=== PATIENT | female | born 1965 | race Two or more races ===

== ENCOUNTER 2017-09-19 10:25 | Day surgery (SDC) | payer BC, OTHER ==
[2017-09-19] MEDS ORDERED: PROPOFOL 200 MG/20 ML BOTTLE IV ONE ×2 (10:26)
[2017-09-19] MEDS ORDERED: LIDOCAINE HCL 2% 20 ML VIAL MC ONE ×2 (10:26)
[2017-09-19] MEDS ORDERED: IV LACTATED RINGERS SOLUTION 1,000 ML BAG IV ONE ×2 (10:26)
[2017-09-19 11:06] LABS: BASOPHILS % (AUTO) 0.8 % (0.0-2.0); EOSINOPHILS # (AUTO) 0.1 K/uL (0.0-0.7); EOSINOPHILS % (AUTO) 2.2 % (0.0-7.0); HEMATOCRIT 40.5 % (31.2-41.9); HEMOGLOBIN 13.6 g/dL (10.9-14.3); LYMPHOCYTES # (AUTO) 1.9 K/uL (20.0-40.0); LYMPHOCYTES % (AUTO) 34.1 % (20.5-51.5); MEAN CORPUSCULAR HEMOGLOBIN 29.7 uug (24.7-32.8); MEAN CORPUSCULAR HGB CONC 34 g/dL (32.3-35.6); MEAN CORPUSCULAR VOLUME 88.1 fL (75.5-95.3); MONOCYTES # (AUTO) 0.4 K/uL (2.0-10.0); MONOCYTES % (AUTO) 6.8 % (0.0-11.0); NEUTROPHILS # (AUTO) 3.2 K/uL (1.8-8.9); NEUTROPHILS % (AUTO) 56.1 % (38.5-71.5); PLATELET COUNT (AUTO) 232 K/uL (179-408); RED BLOOD CELL COUNT(AUTO) 4.59 MIL/uL (3.63-4.92); WHITE BLOOD COUNT (AUTO) 5.7 K/uL (3.8-11.8)
[2017-09-19 11:12] LABS: CREATININE 0.7 mg/dL (0.6-1.3)
[2017-09-19 11:18] LABS: *BILIRUBIN,URIN NEGATIVE (NEGATIVE); *BLOOD, URINE NEGATIVE (NEGATIVE); *CLARITY,URINE CLOUDY (CLEAR); *COLOR,URINE DARK YELLOW (YELLOW); *KETONES,URINE NEGATIVE (NEGATIVE); *PROTEIN,URINE 1+ (NEGATIVE); LEUKOCYTE ESTERASE ,URINE NEGATIVE (NEGATIVE); NITRITE, URINE NEGATIVE (NEGATIVE); UGLUCOSE NEGATIVE (NEGATIVE)
[2017-09-19 11:34] LABS: BACTERIA,URINE FEW /HPF (NONE SEEN); MUCUS,URINE MODERATE /LPF (0-FEW); RBC,URINE 0-3 /HPF (0-3); SQUAMOUS EPITHELIAL CELL,UR MODERATE /HPF (NONE SEEN); WBC,URINE 0-3 /HPF (0-3); YEAST,URINE FEW /HPF (NONE SEEN)
[2017-09-19] MEDS ORDERED: TRIAMCINOLONE ACETONIDE 40 MG/1 ML VIAL ONE ×2 (12:36→12:45)
[2017-09-19] MEDS ORDERED: IOHEXOL-240 MG , 50 ML VIAL IV ONE (12:39)
[2017-09-19] MEDS ORDERED: FENTANYL CITRATE 100 MCG/2 ML AMPUL ONE (13:07)
== END 2017-09-19 14:00 | disposition home or self-care (01) ==
LOC: DS 10:25
PROVIDERS: ATTEND Physical Medicine & Rehabilitation Pain Medicine
DX: M51.16 Intervertebral disc disorders with radiculopathy, lumbar region (principal); G89.29 Other chronic pain; E66.3 Overweight; F32.9 Major depressive disorder, single episode, unspecified
CPT/HCPCS: 36415; 62323; 71045; 74018; 80048; 81001; 85025; 85730; 93005; A4663; J3010; J3301 ×2; J3490 ×4; J7120 ×3; 76000; Q9966

== ENCOUNTER 2018-07-31 12:01 | Day surgery (SDC) | payer BC, OTHER ==
[2018-07-31] MEDS ORDERED: LIDOCAINE HCL 2% 20 ML VIAL MC ONE (12:02)
[2018-07-31] MEDS ORDERED: PROPOFOL 200 MG/20 ML BOTTLE IV ONE (12:02)
[2018-07-31] MEDS ORDERED: IV LACTATED RINGERS SOLUTION 1,000 ML BAG IV ONE (12:02)
[2018-07-31 12:46] LABS: BASOPHILS # (AUTO) 0.1 K/uL (0.0-8.0); BASOPHILS % (AUTO) 0.9 % (0.0-2.0); EOSINOPHILS # (AUTO) 0.2 K/uL (0.0-0.7); HEMATOCRIT 39.8 % (31.2-41.9); HEMOGLOBIN 12.9 g/dL (10.9-14.3); LYMPHOCYTES # (AUTO) 2.1 K/uL (20.0-40.0); LYMPHOCYTES % (AUTO) 36.4 % (20.5-51.5); MEAN CORPUSCULAR HEMOGLOBIN 29.3 uug (24.7-32.8); MEAN CORPUSCULAR HGB CONC 32 g/dL (32.3-35.6); MEAN CORPUSCULAR VOLUME 90.7 fL (75.5-95.3); MONOCYTES # (AUTO) 0.4 K/uL (2.0-10.0); MONOCYTES % (AUTO) 6.3 % (0.0-11.0); NEUTROPHILS # (AUTO) 3.1 K/uL (1.8-8.9); NEUTROPHILS % (AUTO) 53.4 % (38.5-71.5); PLATELET COUNT (AUTO) 243 K/uL (179-408); RED BLOOD CELL COUNT(AUTO) 4.39 MIL/uL (3.63-4.92); WHITE BLOOD COUNT (AUTO) 5.8 K/uL (3.8-11.8)
[2018-07-31 12:50] LABS: CREATININE 0.6 mg/dL (0.6-1.3); POTASSIUM 4.3 mmol/L (3.5-5.1)
[2018-07-31 12:56] LABS: BILIRUBIN,TOTAL 0.4 mg/dL (0.2-1.0); TOTAL PROTEIN, SERUM 6.6 g/dL (6.4-8.2)
[2018-07-31 12:57] LABS: *BILIRUBIN,URIN NEGATIVE (NEGATIVE); *BLOOD, URINE NEGATIVE (NEGATIVE); *CLARITY,URINE CLEAR (CLEAR); *COLOR,URINE YELLOW (YELLOW); *KETONES,URINE NEGATIVE (NEGATIVE); LEUKOCYTE ESTERASE ,URINE NEGATIVE (NEGATIVE); NITRITE, URINE NEGATIVE (NEGATIVE); PH,URINE 6.5 (5.0-8.0); UGLUCOSE NEGATIVE (NEGATIVE)
[2018-07-31 13:16] LABS: RBC,URINE 0-3 /HPF (0-3)
[2018-07-31 13:17] LABS: BACTERIA,URINE NONE SEEN /HPF (NONE SEEN); SQUAMOUS EPITHELIAL CELL,UR FEW /HPF (NONE SEEN); WBC,URINE 0-3 /HPF (0-3)
[2018-07-31 13:18] LABS: MUCUS,URINE MODERATE /LPF (0-FEW); YEAST,URINE RARE /HPF (NONE SEEN)
[2018-07-31] MEDS ORDERED: TRIAMCINOLONE ACETONIDE 40 MG/1 ML VIAL ONE (13:20)
[2018-07-31] MEDS ORDERED: LIDOCAINE HCL-MPF 1% 5 ML VIAL ONE (13:21)
[2018-07-31] MEDS ORDERED: IOHEXOL-240 MG , 50 ML VIAL IV ONE (13:53)
[2018-07-31] MEDS ORDERED: HYDROMORPHONE 1 MG/1 ML DISP.SYRIN ONE (15:05)
== END 2018-07-31 16:12 | disposition home or self-care (01) ==
LOC: DS 12:01
PROVIDERS: ATTEND Physical Medicine & Rehabilitation Pain Medicine
DX: M54.16 Radiculopathy, lumbar region (principal); M46.86 Other specified inflammatory spondylopathies, lumbar region; M19.90 Unspecified osteoarthritis, unspecified site; G89.29 Other chronic pain; K21.9 Gastro-esophageal reflux disease without esophagitis; R94.31 Abnormal electrocardiogram [ECG] [EKG]; M54.5 Low back pain; Z79.01 Long term (current) use of anticoagulants; I48.91 Unspecified atrial fibrillation; I21.3 ST elevation (STEMI) myocardial infarction of unspecified site
CPT/HCPCS: 36415; 64483; 64493; 64494; 70030; 71045; 80053; 81001; 85025; 85730; 93005; J1170; J3301; J3490 ×2; J7120 ×2; A4663; Q9966